=== PATIENT | male | born 1985 | race Caucasian/White ===

== ENCOUNTER 2025-03-07 14:09 | Inpatient (IN) | payer OTHER, SELFPAY ==
--- NOTE | ~2025-03-07 | CT_ITS ---
EXAMINATION: CT right hand with contrast: DATE: 03/07/2025 INDICATION: 39-year-old with suspected abscess of right thumb. No mention of trauma. No further clinical history available. TECHNIQUE: CT scan of right hand including the thumb with 100 cc IV contrast, reviewed in multiple projections. COMPARISON: None previous available FINDINGS: Severe lytic process involving distal half of the proximal phalanx of the right thumb. The articular surface of the proximal phalanx at the interphalangeal joint is completely destroyed. Diffuse soft tissue swelling of the thumb with low density collection in the soft tissue measuring 2.5 x 1.5 cm in size suggestive of possible abscess. The distal phalanx is relatively normal. IMPRESSION: 1. Significant obstructive process involving distal half of the proximal phalanx of the thumb. This is suggestive of osteomyelitis of the proximal phalanx. Less likely differential diagnosis would include neoplasm. 2. Diffuse soft tissue inflammation of the thumb cellulitis. Additional focal low density collection near the interphalangeal joint, 2.5 x 1.5 cm in size suggestive of abscess. Reviewed, dictated and finalized at location T. BOX CHANGER IMPRESSION: 1. Significant obstructive process involving distal half of the proximal phalan x of the thumb. This is suggestive of osteomyelitis of the proximal phalanx. Le ss likely differential diagnosis would include neoplasm. 2. Diffuse soft tissue inflammation of the thumb cellulitis. Additional focal low density collection near the interphalangeal joint, 2.5 x 1 .5 cm in size suggestive of abscess.
[2025-03-07 14:17] VITALS: BP 170/113; PULSE 102; RESP 20; TEMP 36.5; O2SAT 98
--- NOTE | 2025-03-07 16:35 | ED.UPPEXIN ---
HPI - Extremity Injury (Upper) General Chief Complaint: Extremity Injury, Upper <RACHEL Hernandez Last Filed: 03/07/25 19:28> Stated Complaint: Fit for confinement-right thumb swelling <RACHEL Hernandez Last Filed: 03/07/25 19:28> Time Seen by Provider: 03/07/25 15:39 <RACHEL Hernandez Last Filed: 03/07/25 19:28> Source: patient <RACHEL Hernandez Last Filed: 03/07/25 19:28> Mode of arrival: ambulatory <RACHEL Hernandez Last Filed: 03/07/25 19:28> Limitations: no limitations <RACHEL Hernandez Last Filed: 03/07/25 19:28> History of Present Illness HPI narrative: Patient is a 49 y/o male who presents to the ED with c/o infection to R thumb. Patient reports he was cleaning his hatchet with a bleach water solution around 2 months ago and sustained a cut across the dorsal aspect of his R thumb. States since then he has had redness, swelling, drainage from the right thumb. Has been on 2 different courses of antibiotics, most recently Bactrim. He did report some improvement with the Bactrim, but states over the past couple days the thumb has become infected again, larger in size with area of abscess, redness/warmth, pain. Reports subjective fevers. <RACHEL Hernandez Last Filed: 03/07/25 19:28> Related Data Home Medications: Home Medications ?Medication ?Instructions ?Recorded ?Confirmed ?Last Taken ?Type gabapentin 600 mg tablet 600 mg PO TID 03/07/25 03/07/25 03/07/25 History meloxicam 15 mg tablet 15 mg PO DAILY 03/07/25 03/07/25 03/05/25 History <RACHEL Hernandez Last Filed: 03/07/25 19:28> Allergies/Adverse Reactions: Allergies Allergy/AdvReac Type Severity Reaction Status Date / Time lisinopril Allergy Severe Swelling Verified 03/07/25 22:06 of Lip/Tongue/Throat <Mary Cordova PA-C - Last Filed: 03/07/25 19:28> Review of Systems Review of Systems: All systems reviewed & are unremarkable except as noted in HPI. <Mary Cordova PA-C - Last Filed: 03/07/25 19:28> All systems reviewed & are unremarkable except as noted in HPI and below <Mary Cordova PA-C - Last Filed: 03/07/25 19:28> PMFSH Past Medical History Medical History: Medical History (Updated 03/08/25 @ 14:38 by Chuyita Schmitz MD) Back pain <Mary Cordova PA-C - Last Filed: 03/07/25 19:28> Family History Family History: Family History (Updated 03/07/25 @ 22:50 by Cristhian Gibbs RN) Father Heart failure <Mary Cordova PA-C - Last Filed: 03/07/25 19:28> Social History Social History: Social History Smoking status: Current some day smoker Tobacco type: cigarettes Alcohol intake: former Substance use: current Substance use type: marijuana Last use: Daily Lack of Transportation: YES Lack of Food: Never True Current Housing: I Have Housing Concerned About Future Housing: No Difficulty Paying Gas/Electric Bills: No Difficulty Paying for Meds: No Currently Unemployed: YES Education: High School Diploma/GED Difficulty w/ Childcare or Family Care: No Spiritual care concerns: No <Mary Cordova PA-C - Last Filed: 03/07/25 19:28> Exam Narrative: GENERAL: Mildly unkempt appearing, well-nourished, non-toxic, in no acute distress. HEAD: Normocephalic, atraumatic. RESPIRATORY: Airway patent, respirations nonlabored. CARDIOVASCULAR: Regular rate and rhythm without murmurs, rubs, or gallops. Radial pulses strong and easily palpable MUSCULOSKELETAL: Moves all extremities. Marked swelling and erythema to right thumb, localized around IP joint. Area of focal fluctuance /abscess formation to medial IP joint on the dorsal surface of thumb with purple discoloration/bogginess, mild tenderness to palpation. Redness/warmth/swelling extending to mcp region. Sensation intact. SKIN: Warm, dry, normal color. NEURO: A&O X3. Speech clear. No ataxic movements. PSYCHIATRIC: Appropriate mood and affect. Normal interaction. <Mary Cordova PA-C - Last Filed: 03/07/25 19:28> Course MANAGER CHEMICAL/PA Physician Supervision This visit was performed by both a physician and an Advanced Junior Web Developer. I performed all aspects of the Medical Decision Making as documented. <Osiel Guzman MD - Last Filed: 03/15/25 19:16> Vital Signs Vital signs: Vital Signs Temperature 97.7 F 03/07/25 14:17 Pulse Rate 102 H 03/07/25 14:17 Respiratory Rate 20 03/07/25 14:17 Blood Pressure 170/113 H 03/07/25 14:17 Pulse Oximetry 98 03/07/25 14:17 Oxygen Delivery Room Air 03/07/25 14:17 Temperature 96.5 F L 03/11/25 04:35 Pulse Rate 74 03/11/25 04:35 Respiratory Rate 20 03/11/25 04:35 Blood Pressure 145/87 H 03/11/25 04:35 Pulse Oximetry 99 03/11/25 04:35 Oxygen Delivery Room Air 03/11/25 08:06 <Mary Cordova PA-C - Last Filed: 03/07/25 19:28> Vital Signs Temperature 97.7 F 03/07/25 14:17 Pulse Rate 102 H 03/07/25 14:17 Respiratory Rate 20 03/07/25 14:17 Blood Pressure 170/113 H 03/07/25 14:17 Pulse Oximetry 98 03/07/25 14:17 Oxygen Delivery Room Air 03/07/25 14:17 Temperature 96.5 F L 03/11/25 04:35 Pulse Rate 74 03/11/25 04:35 Respiratory Rate 20 03/11/25 04:35 Blood Pressure 145/87 H 03/11/25 04:35 Pulse Oximetry 99 03/11/25 04:35 Oxygen Delivery Room Air 03/11/25 08:06 <Osiel Guzman MD - Last Filed: 03/15/25 19:16> Procedures Abscess I/D hand: Date of Incision: 03/07/25 <Mary Cordova PA-C - Last Filed: 03/07/25 19:28> Time of Incision: 18:30 <RACHEL Hernandez Last Filed: 03/07/25 19:28> Side (if applicable): right (thumb) <Mary Cordova PA-C - Last Filed: 03/07/25 19:28> Sedation/analgesia: none <RACHEL Hernandez Last Filed: 03/07/25 19:28> Local Anesthetic: lidocaine 1% <RACHEL Hernandez Last Filed: 03/07/25 19:28> Amount of anesthesia used (mL): 3 <RACHEL Hernandez Last Filed: 03/07/25 19:28> Technique: incised with #11 blade and probed loculations <RACHEL Hernandez Last Filed: 03/07/25 19:28> Amount of fluid expressed (mL): 3 <RACHEL Hernandez Last Filed: 03/07/25 19:28> Irrigation: Yes <RACHEL Hernandez Last Filed: 03/07/25 19:28> Packing used?: none <RACHEL Hernandez Last Filed: 03/07/25 19:28> I&D Results: Pus, Blood and Other (serous fluid) <RACHEL Hernandez Last Filed: 03/07/25 19:28> Complications: other (none) <RACHEL Hernandez Last Filed: 03/07/25 19:28> MDM MDM Narrative Medical decision making narrative: Exam consistent with severe cellulitis/abscess of R thumb. Vital signs are stable upon arrival. Patient in no acute silvia distress. CBC with white blood cell count of 9.9. Lactic acid within normal range at 0.8. CRP elevated 4.2. Blood cultures obtained. Vanc started CT scan of right hand: IMPRESSION: 1. Significant obstructive process involving distal half of the proximal phalanx of the thumb. This is suggestive of osteomyelitis of the proximal phalanx. Less likely differential diagnosis would include neoplasm. 2. Diffuse soft tissue inflammation of the thumb cellulitis. Additional focal low density collection near the interphalangeal joint, 2.5 x 1.5 cm in size suggestive of abscess. Discussed case with Dr. Haque, hand/plastic surgery, agrees with plan for admission, will consult, recommended attempting I&D, soak with betadine/peroxide/saline, wrap hand, warm compresses, elevate hand, recommended to add Zosyn for g negative coverage. Admit to hospitalist service. Discussed case with Tamika COPELAND hospitalist, accepted patient for admission. Patient and family in agreement with plan <Mary Cordova PA-C - Last Filed: 03/07/25 19:28> Differential Diagnosis Differential Diagnosis: Foreign body, cellulitis, abscess, osteomyelitis, thumb fracture <RACHEL Hernandez Last Filed: 03/07/25 19:28> Medical Records I have reviewed the following patient records and this information was taken into consideration when formulating the assessment and plan.: previous labs, previous ER visits, previous hospitalizations and previous clinic visits <Mary Cordova PA-C - Last Filed: 03/07/25 19:28> Lab Data MDM Lab Attestation statement: I personally reviewed the patient's lab results. <RACHEL Hernandez Last Filed: 03/07/25 19:28> Result diagrams: 03/11/25 04:49 03/10/25 05:34 <RACHEL Hernandez Last Filed: 03/07/25 19:28> Labs: Lab Results 03/07/25 03/07/25 03/07/25 Range/Units 16:49 16:50 17:01 WBC 9.9 (4.5-10.0) K/mm3 RBC 4.49 L (4.6-6.20) M/mm3 Hgb 12.9 L (14.0-18.0) g/dL Hct 39.4 L (42.0-52.0) % MCV 87.8 (80-100) fl MCH 28.7 (26-34) pg MCHC 32.7 (32-36) g/dl RDW 14.1 (11.5-14.5) % Plt Count 211 (150-375) k/mm3 MPV 9.7 (7.4-10.4) fl Immature Gran % (Auto) 0.5 (0-0.5) % Neut % (Auto) 74.7 H (45.5-73.1) % Lymph % (Auto) 14.0 L (18.3-44.2) % [place] % (Auto) 9.5 H (2.6-8.5) % Eos % (Auto) 1.2 (0-4.4) % Baso % (Auto) 0.1 L (0.2-1.2) % Lymph # (Auto) 1.38 (0.9-3.2) K/mm3 [place] # (Auto) 0.9 H (0.1-0.6) K/mm3 Eos # (Auto) 0.1 (0-0.3) K/mm3 Baso # (Auto) 0.0 (0.0-0.1) K/mm3 Abs Immat Gran (auto) 0.05 H (0.00-0.031) K/mm3 Absolute Neuts (auto) 7.4 H (1.3-6.7) K/mm3 Absolute Nucleated RBC 0.000 (0.0-0.012) K/mm3 Nucleated RBC % 0.0 (0.0-0.2) % ESR 19 (0-20) mm/hr Sodium 138 (137-145) mmol/L Potassium 3.7 (3.4-5.0) mmol/L Chloride 107 (98-107) mmol/L Carbon Dioxide 25 (22-30) mmol/L Anion Gap 6 (4-12) mmol/L BUN 18 (9-20) mg/dL Creatinine 0.75 0.80 (0.7-1.3) mg/dL Estim Creat Clear Calc 136 128 ml/min Estimated GFR > 60 > 60 (59 - ) Glucose 93 (65-110) mg/dL Lactic Acid 0.8 (0.7-2.0) mmol/L Calcium 9.1 (8.4-10.2) mg/dL Total Bilirubin 0.5 (0.2-1.3) mg/dL AST 35 (17-59) U/L ALT 34 (6-50) U/L Alkaline Phosphatase 100 (38-126) U/L C-Reactive Protein 4.2 H (<1.0) mg/dL Total Protein 7.7 (6.3-8.2) g/dL Albumin 4.4 (3.5-5.1) g/dL Vancomycin Trough (10.0-20.0) ug/mL 03/08/25 03/09/25 Range/Units 05:11 05:18 WBC 6.3 7.0 (4.5-10.0) K/mm3 RBC 4.18 L 4.36 L (4.6-6.20) M/mm3 Hgb 11.9 L 12.5 L (14.0-18.0) g/dL Hct 37.3 L 39.4 L (42.0-52.0) % MCV 89.2 90.4 (80-100) fl MCH 28.5 28.7 (26-34) pg MCHC 31.9 L 31.7 L (32-36) g/dl RDW 14.1 14.2 (11.5-14.5) % Plt Count 184 207 (150-375) k/mm3 MPV 10.0 10.4 (7.4-10.4) fl Immature Gran % (Auto) 0.3 0.3 (0-0.5) % Neut % (Auto) 56.9 63.9 (45.5-73.1) % Lymph % (Auto) 25.1 20.1 (18.3-44.2) % [place] % (Auto) 12.5 H 10.7 H (2.6-8.5) % Eos % (Auto) 5.0 H 4.7 H (0-4.4) % Baso % (Auto) 0.2 0.3 (0.2-1.2) % Lymph # (Auto) 1.59 1.41 (0.9-3.2) K/mm3 [place] # (Auto) 0.8 H 0.8 H (0.1-0.6) K/mm3 Eos # (Auto) 0.3 0.3 (0-0.3) K/mm3 Baso # (Auto) 0.0 0.0 (0.0-0.1) K/mm3 Abs Immat Gran (auto) 0.02 0.02 (0.00-0.031) K/mm3 Absolute Neuts (auto) 3.6 4.5 (1.3-6.7) K/mm3 Absolute Nucleated RBC 0.000 0.000 (0.0-0.012) K/mm3 Nucleated RBC % 0.0 0.0 (0.0-0.2) % ESR (0-20) mm/hr Sodium 137 (137-145) mmol/L Potassium 3.5 (3.4-5.0) mmol/L Chloride 108 H (98-107) mmol/L Carbon Dioxide 27 (22-30) mmol/L Anion Gap 2 L (4-12) mmol/L BUN 14 (9-20) mg/dL Creatinine 0.82 0.86 (0.7-1.3) mg/dL Estim Creat Clear Calc 124 118 ml/min Estimated GFR > 60 > 60 (59 - ) Glucose 92 (65-110) mg/dL Lactic Acid (0.7-2.0) mmol/L Calcium 8.6 (8.4-10.2) mg/dL Total Bilirubin (0.2-1.3) mg/dL AST (17-59) U/L ALT (6-50) U/L Alkaline Phosphatase (38-126) U/L C-Reactive Protein (<1.0) mg/dL Total Protein (6.3-8.2) g/dL Albumin (3.5-5.1) g/dL Vancomycin Trough 8.8 L (10.0-20.0) ug/mL <Mary Cordova PA-C - Last Filed: 03/07/25 19:28> Lab Results 03/07/25 03/07/25 03/07/25 Range/Units 16:49 16:50 17:01 WBC 9.9 (4.5-10.0) K/mm3 RBC 4.49 L (4.6-6.20) M/mm3 Hgb 12.9 L (14.0-18.0) g/dL Hct 39.4 L (42.0-52.0) % MCV 87.8 (80-100) fl MCH 28.7 (26-34) pg MCHC 32.7 (32-36) g/dl RDW 14.1 (11.5-14.5) % Plt Count 211 (150-375) k/mm3 MPV 9.7 (7.4-10.4) fl Immature Gran % (Auto) 0.5 (0-0.5) % Neut % (Auto) 74.7 H (45.5-73.1) % Lymph % (Auto) 14.0 L (18.3-44.2) % [place] % (Auto) 9.5 H (2.6-8.5) % Eos % (Auto) 1.2 (0-4.4) % Baso % (Auto) 0.1 L (0.2-1.2) % Lymph # (Auto) 1.38 (0.9-3.2) K/mm3 [place] # (Auto) 0.9 H (0.1-0.6) K/mm3 Eos # (Auto) 0.1 (0-0.3) K/mm3 Baso # (Auto) 0.0 (0.0-0.1) K/mm3 Abs Immat Gran (auto) 0.05 H (0.00-0.031) K/mm3 Absolute Neuts (auto) 7.4 H (1.3-6.7) K/mm3 Absolute Nucleated RBC 0.000 (0.0-0.012) K/mm3 Nucleated RBC % 0.0 (0.0-0.2) % ESR 19 (0-20) mm/hr Sodium 138 (137-145) mmol/L Potassium 3.7 (3.4-5.0) mmol/L Chloride 107 (98-107) mmol/L Carbon Dioxide 25 (22-30) mmol/L Anion Gap 6 (4-12) mmol/L BUN 18 (9-20) mg/dL Creatinine 0.75 0.80 (0.7-1.3) mg/dL Estim Creat Clear Calc 136 128 ml/min Estimated GFR > 60 > 60 (59 - ) Glucose 93 (65-110) mg/dL Lactic Acid 0.8 (0.7-2.0) mmol/L Calcium 9.1 (8.4-10.2) mg/dL Total Bilirubin 0.5 (0.2-1.3) mg/dL AST 35 (17-59) U/L ALT 34 (6-50) U/L Alkaline Phosphatase 100 (38-126) U/L C-Reactive Protein 4.2 H (<1.0) mg/dL Total Protein 7.7 (6.3-8.2) g/dL Albumin 4.4 (3.5-5.1) g/dL Vancomycin Trough (10.0-20.0) ug/mL 03/08/25 03/09/25 Range/Units 05:11 05:18 WBC 6.3 7.0 (4.5-10.0) K/mm3 RBC 4.18 L 4.36 L (4.6-6.20) M/mm3 Hgb 11.9 L 12.5 L (14.0-18.0) g/dL Hct 37.3 L 39.4 L (42.0-52.0) % MCV 89.2 90.4 (80-100) fl MCH 28.5 28.7 (26-34) pg MCHC 31.9 L 31.7 L (32-36) g/dl RDW 14.1 14.2 (11.5-14.5) % Plt Count 184 207 (150-375) k/mm3 MPV 10.0 10.4 (7.4-10.4) fl Immature Gran % (Auto) 0.3 0.3 (0-0.5) % Neut % (Auto) 56.9 63.9 (45.5-73.1) % Lymph % (Auto) 25.1 20.1 (18.3-44.2) % [place] % (Auto) 12.5 H 10.7 H (2.6-8.5) % Eos % (Auto) 5.0 H 4.7 H (0-4.4) % Baso % (Auto) 0.2 0.3 (0.2-1.2) % Lymph # (Auto) 1.59 1.41 (0.9-3.2) K/mm3 [place] # (Auto) 0.8 H 0.8 H (0.1-0.6) K/mm3 Eos # (Auto) 0.3 0.3 (0-0.3) K/mm3 Baso # (Auto) 0.0 0.0 (0.0-0.1) K/mm3 Abs Immat Gran (auto) 0.02 0.02 (0.00-0.031) K/mm3 Absolute Neuts (auto) 3.6 4.5 (1.3-6.7) K/mm3 Absolute Nucleated RBC 0.000 0.000 (0.0-0.012) K/mm3 Nucleated RBC % 0.0 0.0 (0.0-0.2) % ESR (0-20) mm/hr Sodium 137 (137-145) mmol/L Potassium 3.5 (3.4-5.0) mmol/L Chloride 108 H (98-107) mmol/L Carbon Dioxide 27 (22-30) mmol/L Anion Gap 2 L (4-12) mmol/L BUN 14 (9-20) mg/dL Creatinine 0.82 0.86 (0.7-1.3) mg/dL Estim Creat Clear Calc 124 118 ml/min Estimated GFR > 60 > 60 (59 - ) Glucose 92 (65-110) mg/dL Lactic Acid (0.7-2.0) mmol/L Calcium 8.6 (8.4-10.2) mg/dL Total Bilirubin (0.2-1.3) mg/dL AST (17-59) U/L ALT (6-50) U/L Alkaline Phosphatase (38-126) U/L C-Reactive Protein (<1.0) mg/dL Total Protein (6.3-8.2) g/dL Albumin (3.5-5.1) g/dL Vancomycin Trough 8.8 L (10.0-20.0) ug/mL <Osiel Guzman MD - Last Filed: 03/15/25 19:16> Imaging Data Attestation: I personally reviewed and interpreted this imaging study as follows: <Mary Cordova PA-C - Last Filed: 03/07/25 19:28> Radiologist's impression: ITS Impressions Hand CT 03/07/25 17:24 IMPRESSION: 1. Significant obstructive process involving distal half of the proximal phalanx of the thumb. This is suggestive of osteomyelitis of the proximal phalanx. Less likely differential diagnosis would include neoplasm. 2. Diffuse soft tissue inflammation of the thumb cellulitis. Additional focal low density collection near the interphalangeal joint, 2.5 x 1.5 cm in size suggestive of abscess. <Mary Cordova PA-C - Last Filed: 03/07/25 19:28> ITS Impressions Hand CT 03/07/25 17:24 IMPRESSION: 1. Significant obstructive process involving distal half of the proximal phalanx of the thumb. This is suggestive of osteomyelitis of the proximal phalanx. Less likely differential diagnosis would include neoplasm. 2. Diffuse soft tissue inflammation of the thumb cellulitis. Additional focal low density collection near the interphalangeal joint, 2.5 x 1.5 cm in size suggestive of abscess. <Osiel Guzman MD - Last Filed: 03/15/25 19:16> Discharge Plan Discharge Clinical Impression: Abscess of right thumb, Cellulitis of right thumb, Osteomyelitis of finger of right hand <Mary Cordova PA-C - Last Filed: 03/07/25 19:28> Patient Disposition: Still a Patient <Mary Cordova PA-C - Last Filed: 03/07/25 19:28> Condition: Stable <RACHEL Hernandez Last Filed: 03/07/25 19:28>
[2025-03-07 16:43] VITALS: BP 128/81; PULSE 93; RESP 19; O2SAT 100
[2025-03-07 16:58] LABS: Hematocrit 39.4 % (42.0-52.0); Hemoglobin 12.9 g/dL (14.0-18.0); Immature Granulocyte Percent A 0.5 % (0-0.5); Lymphocytes Absolute Auto 1.38 K/mm3 (0.9-3.2); Mean Corpuscular HGB Conc 32.7 g/dl (32-36); Mean Corpuscular Hemoglobin 28.7 pg (26-34); Mean Corpuscular Volume 87.8 fl (80-100); Nucleated Red Blood Cells Absolute Auto 0.000 K/mm3 (0.0-0.012); Nucleated Red Blood Cells Perc 0.0 % (0.0-0.2); Platelet Count Result 211 k/mm3 (150-375); Red Blood Count 4.49 M/mm3 (4.6-6.20); White Blood Count 9.9 K/mm3 (4.5-10.0)
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
--- OUTSIDE RECORDS SUMMARY | 2025-03-07 17:02 | XMS_ITS | Encounter Summary ---
Author Organization [facility] Healthcare Address [address] [place] [address] Care Team Providers Care Display Specialist Name Role Phone No, Physician Primary Care Provider [phone] Encounter Details Date Type Department Care Team (Late st Contact Info) Description 04/08/2023 Telephone Specialty Care Clinic [address] [facility] 4th Floor [address] [place] [address] Nicole, Physician Social History Tobacco Use Types Packs/Day Years Used Date Smoking Tobacco: Unknown Personal Safety Answer Date Recorded Have you ever been in or are you currently in a harmful physical or emotional relationship or is someone making you feel afraid or unsafe? Denies 03/31/2023 Sex and Gender Information Value Date Recorded Sex Assigned at Not on file Legal Sex Male 1:56 PM CHILDCARE AIDE Gender Identity Not on file Sexual Orientation Not on file documented as of this encounter Plan of Treatment Not on file documented as of this encounter Visit Diagnoses Not on filedocumented in this encounter Additional Health Concerns Infection Onset Date Last Indicated Resolved Time MRSA 03/31/2023 03/31/2023 09/27/2023 3:05 AM CDT documented as of this encounter Care Teams Display Specialist Relationship Specialty Start Date End Date Nicole Physician PCP - General 03/24/23 documented as of this encounter
--- OUTSIDE RECORDS SUMMARY | 2025-03-07 17:03 | XMS_ITS | Clinical Summary ---
Author Organization [facility] Address [address] [place] [address] Care Team Providers Care Diesel Engine Specialist Name Role Phone No, Physician Primary Care Provider [phone] Allergies Active Allergy Reactions Criticality Noted Date Comments Lisinopril Angioedema High 03/24/2023 Medications acetaminophen (TYLENOL) 500 mg tablet Take 1-2 tablets (500-1,000 mg total) by mouth 2 (two) times a day Active gabapentin (NEURONTIN) 300 mg capsule TAKE 1 CAPSULE BY MOUTH THREE TIMES A DAY 90 capsule 3 09/22/2023 Active gabapentin (NEURONTIN) 300 mg capsule Take 1 capsule (300 mg total) by mouth 3 (three) times a day 90 capsule 1 09/19/2023 Active Active Problems Problem Noted Date Diagnosed Date Spinal stenosis, lumbar luly on, with neurogenic claudication 05/16/2023 Insect bite of left hand, initial encounter 06/2023 Cellulitis and abscess of hand 03/31/2023 Assessment & Plan (04/02/2023 9:47 AM SHOWER MAID): 2/2 insect bite. Started having symptoms after a suspected sided bite on left pinky finger approximately 4 days ago which progressed to the point where he has hand swelling and unbearable pain with [id number] Tylenol and ibuprofen at home. Labs notable for leukocytosis with white count of 14.2 with neutrophilia, elevated ESR of 16, CRP of 128. X-ray however shows a very subtle cortical irregularity involving mid shaft of the left 5th metacarpal which is favored to represent a nutrient foramen over an osseous erosion. - Evaluated by plastics in the ED and performed I&D with purulence noted. S/p re-eval 04/01, cont abx and non-op management. PRS eval again 04/02 rec additional day of IV abx however pt refusing to stay - Wound cultures in process with MRSA and group b strep - S/p splinting by OT - Cont wound care per PRS: TID soaks. 03/29 in iodoform, adaptic, 4x4, and volar resting splint - Started vancomycin to cover for MRSA in view of his previous history, [place] Surgical History Surgery Date Site/Laterality Comments LEG SURGERY Left broken leg POSTERIOR LAMINECTOMY / DECOMPRESSION LUMBAR SPINE 03/28/2018 - 03/27/2019 L4-5 Social History Tobacco Use Types Packs/Day Years Used Date Smoking Tobacco: Every Day Cigarettes Tobacco Cessation:Ready to Q uit: Not Asked; Counseling Given: Not Answered Hunger Vital Sign Answer Date Recorded Within the past 12 months, y ou worried that your food would run out before you got the money to buy more. Never true 05/16/19 24 Within the past 12 months, t he food you bought just didn't last and you didn't have money to get more. Never true 05/16/2023 Personal Safety Answer Date Recorded Have you ever been in or are you currently in a harmful physical or emotional relationship or is someone making you feel afraid or unsafe? Denies 03/31/2023 Sex and Gender Information Value Date Recorded Sex Assigned at Not on file Legal Sex Male 1:56 PM SHOWER MAID Gender Identity Not on file Sexual Orientation Not on file Last Filed Vital Signs Vital Sign Reading Time Taken Comments Blood Pressure 149/93 04/02/2023 8:15 AM SHOWER MAID Pulse 69 04/02/2023 8:15 AM SHOWER MAID Temperature 36.5 C (97.7 F) 04/02/2023 8:15 AM SHOWER MAID Respiratory Rate 16 04/02/2023 8:15 AM SHOWER MAID Oxygen Saturation 94% 04/02/2023 8:15 AM SHOWER MAID Inhaled Oxygen Concentration - - Weight 82.1 kg (181 lb) 09/16/2023 9:51 AM CDT Height 193 cm (6' 4) 09/16/2023 9:51 AM CDT Body Mass Index 22.03 09/16/2023 9:51 AM CDT Plan of Treatment Health Maintenance Due Date Last Done Comments Depression Screening 1983 Hepatitis C Screening 1983 DTaP/Tdap/Td Vaccine (1 - Tdap) 1994 Varicella Vaccines (1 of 2 - 13+ 2-dose series) 1996 Hepatitis B Screening 2001 Regular Well Visit/Exam 18-64 2001 Pneumococcal vaccine <65 (1 of 2 - PCV) 2002 HPV Vaccines (1 - 3-dose SCDM series) 2010 Influenza Vaccine (#1) 2024 Insurance [facility] Advance Directives For more information, please contact: [phone] * Full Code (Latest Code Status on File) Date Activated Date Inactivated Comments 03/31/2023 3:00 PM 04/02/2023 2:55 PM Care Teams Diesel Engine Specialist Relationship Specialty Start Date End Date No, Physician PCP - General 03/24/23
[2025-03-07 17:13] LABS: Alanine Aminotransferase 34 U/L (6-50); Albumin Level 4.4 g/dL (3.5-5.1); Alkaline Phosphatase 100 U/L (38-126); Anion Gap 6 mmol/L (4-12); Aspartate Amino Transferase 35 U/L (17-59); Bilirubin,Total 0.5 mg/dL (0.2-1.3); Blood Urea Nitrogen 18 mg/dL (9-20); CRP 4.2 mg/dL (<1.0); Calcium 9.1 mg/dL (8.4-10.2); Carbon Dioxide 25 mmol/L (22-30); Chloride 107 mmol/L (98-107); Estimated CRCL calculation 136 ml/min; Estimated Glomerular Filt Rate > 60; Glucose 93 mg/dL (65-110); Potassium 3.7 mmol/L (3.4-5.0); Sodium 138 mmol/L (137-145); Total Protein 7.7 g/dL (6.3-8.2)
--- NOTE | 2025-03-07 17:43 | PC.NURSE ---
standard regular diet dinner tray ordered
[2025-03-07] MEDS: VANCOMYCIN 1,500 MG/NS 500 ML 1,500 MG/500 ML BAG 250 MG IVPB (17:45)
[2025-03-07 18:56] VITALS: BP 149/108; PULSE 91; RESP 20; O2SAT 98
--- NOTE | 2025-03-07 18:57 | PC.NURSE ---
per pharmacy, the Zosyn and vancomycin can be hung together
[2025-03-07 19:01] VITALS: BP 165/102; PULSE 90; RESP 16; O2SAT 99
[2025-03-07] MEDS: PIPERACILLIN/TAZOBACTAM SOD 3.375 GM in SODIUM CHLORIDE 0.9% IV 50 ML 100 ML IVPB (19:03)
[2025-03-07] MEDS: HYDROGEN PEROXIDE 3% SOLN(*SP) 473 ML BOTTLE (19:03)
[2025-03-07 19:14] LABS: Estimated CRCL calculation 128 ml/min; Estimated Glomerular Filt Rate > 60
--- OUTSIDE RECORDS SUMMARY | 2025-03-07 19:14 | XMS_ITS | Encounter Summary ---
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
--- OUTSIDE RECORDS SUMMARY | 2025-03-07 19:15 | XMS_ITS | Clinical Summary ---
Author Organization [facility] Address [facility] [place] [address] Care Team Providers Care Wire Border Assembler Name Role Phone None, Provider MD Primary [...] from your doctor or pharmacy? Never 05/24/2024 [facility] Utilities Answer Date Recorded In the past 12 months has e [employer], gas, oil, or water company threatened to [...] often do you attend chur ch or zoroastrianism services? Never 05/24/2024 Do you belong to any clubs o r organizations such as presybeterian groups, unions, fraternal or athletic groups, or [...] medical care, and heating? Somewhat hard 05/24/2024 [facility] Occupational Stress Questionnaire [...] any time in the past 12 m [facility], were you homeless or living in a correction (including now)? No 05/24/2024 Sex and Gender Information Value Date Recorded Sex Assigned at Male 05/23/2024 10:46 PM CONTRACTS ANALYST Legal Sex Male 7:27 PM CDT Gender Identity Not on file Sexual Orientation Not on file Last Filed Vital Signs Vital Sign Reading Time Taken Comments Blood Pressure 149/99 05/26/2024 7:10 AM CONTRACTS ANALYST Pulse 81 05/26/2024 7:10 AM CONTRACTS ANALYST Temperature 36.6 C (97.8 F) 05/26/2024 7:10 AM CONTRACTS ANALYST Respiratory Rate 18 05/26/2024 7:10 AM CONTRACTS ANALYST Oxygen Saturation 99% 05/26/2024 7:10 AM CONTRACTS ANALYST Inhaled Oxygen Concentration - - Weight 84.3 kg (185 lb 12.8 oz) 05/24/2024 3:00 AM CONTRACTS ANALYST Height 193 cm (6' 4) 05/24/2024 3:00 AM CONTRACTS ANALYST Body Mass Index 22.62 05/24/2024 3:00 AM CONTRACTS ANALYST Plan of Treatment Health Maintenance Due Date [...] Recommended Domains Addressed Status Status Reason/Outcome Date/Time [facility] Financial Assistance Financial Resource Strain Recommended 10/14/2024 9:52 PM CDT [facility] Children Home and Aid Financial Assistance Financial Resource Strain Recommended 10/14/2024 9:[address] [facility] Food Insecurity Services Food Insecurity Recommended 10/14/2024 9:52 PM CDT [facility] Food Insecurity Services Food Insecurity Recommended 10/14/2024 9:52 PM CDT [employer] [place] [place] Food Insecurity Services Food Insecurity Recommended 10/14/2024 9:52 PM CDT [facility] Community Underground Miner- Gissell Preez Financial Assistance Financial Resource Strain Recommended 10/14/2024 9:52 PM CDT [facility] Community Underground Miner- Divya Coronel Financial Assistance, Food Insecurity Services Financial Resource Strain, Food Insecurity Recommended 10/14/2024 9:52 PM CDT [facility] WIC Financial Assistance, Food Insecurity Services, Supplemental Nutrition Programs Financial Resource Strain, Food Insecurity Recommended 10/14/2024 9:52 PM CDT from Last 12 Months Additional Health Concerns Infection Onset Date Last Indicated MRSA Comment:05/25/24 right foot (ANAYA) 05/25/2024 05/25/[address] [place] [address] Care Teams Wire Border Assembler Relationship Specialty Start Date End Date None, Provider, PCP - General UNKNOWN PHYSICIAN SPECIALTY 05/23/24
--- OUTSIDE RECORDS SUMMARY | 2025-03-07 19:15 | XMS_ITS | Clinical Summary ---
Author Organization [facility] Address [address] [place] [address] Care Team Providers Care Acute Care Surgeon Name Role Phone No, Physician Primary Care Provider [phone] Allergies Active Allergy Reactions Criticality Noted Date [...] 03/31/2023 Assessment & Plan (04/02/2023 9:47 AM CLERK CARRIER): 2/2 insect bite. Started having symptoms after a suspected sided bite on left pinky finger approximately 4 days ago which progressed to the point where he has hand swelling and unbearable pain with [id number] Tylenol and ibuprofen at home. Labs notable [...] his previous history, [place] Surgical History Surgery Date Site/Laterality Comments LEG [...] on file Legal Sex Male 1:56 PM CLERK CARRIER Gender Identity Not on file Sexual Orientation Not on file Last Filed Vital Signs Vital Sign Reading Time Taken Comments Blood Pressure 149/93 04/02/2023 8:15 AM CLERK CARRIER Pulse 69 04/02/2023 8:15 AM CLERK CARRIER Temperature 36.5 C (97.7 F) 04/02/2023 8:15 AM CLERK CARRIER Respiratory Rate 16 04/02/2023 8:15 AM CLERK CARRIER Oxygen Saturation 94% 04/02/2023 8:15 AM CLERK CARRIER Inhaled Oxygen Concentration - - Weight 82.1 [...] series) 2010 Influenza Vaccine (#1) 2024 Insurance [facility] Advance Directives For more information, please contact: [phone] * Full Code (Latest Code Status on File) Date Activated Date Inactivated Comments 03/31/2023 3:00 PM 04/02/2023 2:55 PM Care Teams Acute Care Surgeon Relationship Specialty Start Date End Date No, Physician PCP - General 03/24/23
--- NOTE | 2025-03-07 20:29 | PM.IMHP2 ---
H&P: HPI History of Present Illness Date/Time: 03/07/25 1800 Chief Complaint: Right thumb injury Narrative: 39 year old male with a past medical history of chronic back pain presents to the ED on 03/07/[address] for fit for confinement assessment after being detained during a traffic stop. Patient has but noticeably infected right thumb. He reports he was cleaning an old patch it about 2 months ago and sustained a cut on the dorsal aspect of his right thumb. He states it is been red and swollen with drainage at times. He reports that was ?almost healed? at one point but became inflamed again. Over the past 2 months he has been on 2 different courses of antibiotics most recently being Bactrim. He reported some improvement with the Bactrim but over the past couple days the thumb has rapidly become more infected again, larger in size, and painful. Patient reports intermittent fevers. Abscess was drained in the ED with drainage of pus and blood. Initial vital signs 170/113, HR 102, respirations 20, afebrile and 98% on room air No leukocytosis on hematology. CRP is 4.2. Right Hand CT reads significant obstructive process involving distal half of the proximal phalanx of the thumb suggestive of osteomyelitis. Diffuse soft tissue inflammation. Additional focal low-density collection near the interphalangeal joint suggestive of abscess. Review of Systems Review of Systems: All systems reviewed & are unremarkable except as noted in HPI and below PMFSH Past Medical History Medical History (Updated 03/08/25 @ 02:04 by Tamika Garrett APRN) Back pain Family History Family History (Updated 03/07/25 @ 22:50 by Cristhian Gibbs RN) Father Heart failure Social History Social History Alcohol intake: former Substance use: current Substance use type: marijuana Last use: Daily Lack of Transportation: YES Lack of Food: Never True Current Housing: I Have Housing Concerned About Future Housing: No Difficulty Paying Gas/Electric Bills: No Difficulty Paying for Meds: No Currently Unemployed: YES Education: High School Diploma/GED Difficulty w/ Childcare or Family Care: No Spiritual care concerns: No Meds Home Medications and Allergies Home Medications ?Medication ?Instructions ?Recorded ?Confirmed ?Type gabapentin 600 mg tablet 600 mg PO TID 03/07/25 03/07/25 History meloxicam 15 mg tablet 15 mg PO DAILY 03/07/25 03/07/25 History Allergies Allergy/AdvReac Type Severity Reaction Status Date / Time lisinopril Allergy Severe Swelling Verified 03/07/25 22:06 of Lip/Tongue/Throat Vital Signs Vital Signs - 24 hr 03/07/25 14:17 03/07/25 16:43 03/07/25 18:56 Temperature 97.7 F Pulse Rate 102 H 93 91 Respiratory Rate 20 19 20 Blood Pressure 170/113 H 128/81 149/108 H Pulse Oximetry 98 100 98 Oxygen Delivery Room Air 03/07/25 19:01 Temperature Pulse Rate 90 Respiratory Rate 16 Blood Pressure 165/102 H Pulse Oximetry 99 Oxygen Delivery Exam Narrative: GENERAL: non-toxic appearing, in no acute distress. HEAD: Normocephalic, atraumatic. EYES: PERRLA. Conjunctivae clear. NOSE: Normal no drainage. THROAT: Pharynx clear, no exudate. NECK: Trachea midline. No adenopathy, no masses. RESPIRATORY: Airway patent, respirations nonlabored. CTA. CARDIOVASCULAR: Regular rate and rhythm GASTROINTESTINAL: Abdomen is soft and nontender. No organomegaly. Bowel sounds normal in all quadrants. GENITOURINARY: Defer MUSCULOSKELETAL: Moves all extremities. Swelling in erythema to right thumb localized around the IP joint. Area of abscess formation on the dorsal surface of the thumb with purple discoloration. Mild tenderness on palpation. Sensation intact. SKIN: Warm, dry, normal color. With the exception of the right thumb. NEURO: A&O X4. Speech clear PSYCHIATRIC: Normal interaction Results Labs Labs: Short CBC 03/07/25 Range/Units 16:50 WBC 9.9 (4.5-10.0) K/mm3 Hgb 12.9 L (14.0-18.0) g/dL Hct 39.4 L (42.0-52.0) % Plt Count 211 (150-375) k/mm3 BMP 03/07/25 03/07/25 16:50 17:01 Sodium 138 Potassium 3.7 Chloride 107 Carbon Dioxide 25 BUN 18 Creatinine 0.75 0.80 Glucose 93 Calcium 9.1 Liver Function 03/07/25 Range/Units 16:50 Total Bilirubin 0.5 (0.2-1.3) mg/dL AST 35 (17-59) U/L ALT 34 (6-50) U/L Alkaline Phosphatase 100 (38-126) U/L Albumin 4.4 (3.5-5.1) g/dL Quality VTE Prophylaxis VTE prophylaxis: mechanical ordered Assessment and Plan Assessment and plan (1) Osteomyelitis of finger of right hand: Code(s): M86.9 - Osteomyelitis, unspecified Status: Acute Assessment and Plan: Right Hand CT reads significant obstructive process involving distal half of the proximal phalanx of the thumb suggestive of osteomyelitis. -consult to hand/plastic surgery -Zosyn and vancomycin started on 03/07 -blood cultures pending -hydrocodone p.r.n. (2) Abscess of right thumb: Code(s): L02.511 - Cutaneous abscess of right hand Status: Acute Assessment and Plan: Drained in the ED with removal of pus and blood. Soaked with Betadine, peroxide, saline solution on the recommendation from Plastic surgery. -keep wound clean and dry -wound cultures pending (3) Back pain: Code(s): M54.9 - Dorsalgia, unspecified Status: Chronic Assessment and Plan: Chronic back pain with history of (unknown) back surgery -continue gabapentin Prior Studies I have reviewed the following patient records and this information was taken into consideration when formulating the assessment and plan.: previous labs, previous ER visits, previous hospitalizations and previous clinic visits Time Spent with Patient Time with patient: 45 - 74 minutes
[2025-03-07] MEDS: VANCOMYCIN 750 MG/NS 250 ML 750 MG/250 ML BAG 250 MG IVPB (20:39)
[2025-03-07 21:19] VITALS: BP 126/78; PULSE 92; RESP 18; TEMP 36.6; O2SAT 100
--- NOTE | 2025-03-07 21:21 | WPCEDHO ---
ED Hand Off Checklist All vitals saved: Yes IV Site documented: Yes All med administrations documented: Yes Triage Note Triage Note Patient to the ED with PD with 03/07/25 15:07 complaints of swelling and redness to the right thumb. Patient states he cut it with a hatchet 2 months ago. Patient denies pain at this time. this RN agrees with triage assessment pt says he had drainge from the wound earlier today Allergies lisinopril Allergy (Severe, Verified 03/07/25 14:10) Swelling of Lip/Tongue/Throat Administered/Completed Medications Discontinued Medications Hydrogen Peroxide/Benzyl Alcohol (Hydrogen Peroxide 3% Soln(*Sp) 473 Ml Bottle) Confirm Administered Dose 473 ml .ROUTE .STK-MED ONE Stop: 03/07/25 18:12 Last Admin: 03/07/25 19:03 Dose: 473 ml Documented By: TISH Vancomycin HCl (Vancomycin 1,500 Mg/Ns 500 Ml) 1,500 mg in 500 mls @ 250 mls/hr IVPB ONCE ONE Stop: 03/07/25 19:31 Last Infusion: 03/07/25 20:34 Dose: Infused Documented By: Admin: 03/07/25 17:45 Dose: 250 mls/hr Documented By: TISH Vancomycin HCl (Vancomycin 750 Mg/Ns 250 Ml) 750 mg in 250 mls @ 250 mls/hr IVPB ONCE ONE Stop: 03/07/25 20:44 Last Admin: 03/07/25 20:39 Dose: 250 mls/hr Documented By: ANASTASIYA Piperacillin Sod/Tazobactam (Sod 3.375 gm/ Sodium Chloride) 50 mls @ 100 mls/hr IVPB ONCE STA Stop: 03/07/25 18:29 Last Infusion: 03/07/25 20:03 Dose: Infused Documented By: Admin: 03/07/25 19:03 Dose: 100 mls/hr Documented By: TISH Lidocaine HCl (Lidocaine 1% Local Inj 20 Ml Vial) 10 ml INFILTRATE ONCE ONE Stop: 03/07/25 18:01 Last Admin: 03/07/25 19:02 Dose: Not Given Documented By: TISH Non-Admin Reason: MD Administered Lidocaine HCl (Lidocaine 1% Local Inj 10 Ml Vial) Confirm Administered Dose 10 ml .ROUTE .STK-MED ONE Stop: 03/07/25 18:12 Last Admin: 03/07/25 19:03 Dose: Not Given Documented By: TISH Non-Admin Reason: Duplicate Dose Notes 03/07/25 18:57 Nurse Note by Lacie Tompkins per pharmacy, the Zosyn and vancomycin can be hung together Initialized on 03/07/25 18:57 - END OF NOTE 03/07/25 17:43 Nurse Note by Valery Catherine standard regular diet dinner tray ordered Initialized on 03/07/25 17:43 - END OF NOTE Interventions/Assessments IV / Saline Lock, Insert Start: 03/07/25 14:10 Freq: Status: Active Protocol: Document 03/07/25 16:54 TISH (Rec: 03/07/25 16:54 TISH [id number]) IV Assessment Peripheral Access Left Antecubital IV Catheter Access Initiated IV Insertion Date 03/07/25 IV Insertion Time 16:54 Catheter Gauge 18 IV Insertion 1 Attempts Ultrasound Used for No Placement IV Site Assessment WNL IV Care and WNL Maintenance Last Vital Signs Temperature 97.8 F 03/07/25 21:19 Pulse Rate 92 03/07/25 21:19 Respiratory Rate 18 03/07/25 21:19 Pulse Oximetry 100 03/07/25 21:19 Blood Pressure 126/78 03/07/25 21:19 Blood Pressure Mean 94 03/07/25 21:19 Blood Pressure Position Sitting 03/07/25 21:19 Oxygen Delivery Room Air 03/07/25 14:17 Weight 85.4 kg 03/07/25 15:07 Last Result - Abnormals Only RBC 4.49 M/mm3 (4.6-6.20) L 03/07/25 16:50 Hgb 12.9 g/dL (14.0-18.0) L 03/07/25 16:50 Hct 39.4 % (42.0-52.0) L 03/07/25 16:50 Neut % (Auto) 74.7 % (45.5-73.1) H 03/07/25 16:50 Lymph % (Auto) 14.0 % (18.3-44.2) L 03/07/25 16:50 Jerauld % (Auto) 9.5 % (2.6-8.5) H 03/07/25 16:50 Baso % (Auto) 0.1 % (0.2-1.2) L 03/07/25 16:50 Jerauld # (Auto) 0.9 K/mm3 (0.1-0.6) H 03/07/25 16:50 Abs Immat Gran (auto) 0.05 K/mm3 (0.00-0.031) H 03/07/25 16:50 Absolute Neuts (auto) 7.4 K/mm3 (1.3-6.7) H 03/07/25 16:50 C-Reactive Protein 4.2 mg/dL (<1.0) H 03/07/25 16:50 Most Recent Suicide Severity Rating Suicide Severity Rating NO RISK INDICATED 03/07/25 15:07
[2025-03-07 21:42] VITALS: BMI 22.6
--- NOTE | 2025-03-07 21:52 | ADMGEN ---
This patient, Rommel Salcedo, was admitted to 3 [facility] Surg Room 301-01. Patient/family oriented to hospital policies and general routines including ID bracelet, bed and alarms, visiting hours, pain management, procedures, bathroom and other care routines, personal items, smoking policy, room service/diet, and visiting hours. Information on how to activate the Rapid Response Team has been discussed. Patient/Family are encouraged to report perceived risks to care and to ask questions if they do not understand what they are told or what they should do.
[2025-03-07 21:55] VITALS: BP 153/95; PULSE 79; RESP 18; TEMP 36.8; O2SAT 99
[2025-03-07] MEDS: GABAPENTIN 300 MG CAPSULE 600 MG PO (22:28)
[2025-03-08] MEDS: HYDROcodone/acetaminophen (*CRX) 5-325 MG TABLET 1 TAB PO ×3 (03:03→16:59)
[2025-03-08] MEDS: PIPERACILLIN/TAZOBACTAM SOD 3.375 GM in SODIUM CHLORIDE 0.9% IV 50 ML 100 ML IVPB ×3 (03:03→19:00)
[2025-03-08 04:30] VITALS: BP 145/91; PULSE 83; RESP 18; TEMP 36.3; O2SAT 99
[2025-03-08 05:45] LABS: Hematocrit 37.3 % (42.0-52.0); Hemoglobin 11.9 g/dL (14.0-18.0); Immature Granulocyte Percent A 0.3 % (0-0.5); Lymphocytes Absolute Auto 1.59 K/mm3 (0.9-3.2); Mean Corpuscular HGB Conc 31.9 g/dl (32-36); Mean Corpuscular Hemoglobin 28.5 pg (26-34); Mean Corpuscular Volume 89.2 fl (80-100); Nucleated Red Blood Cells Absolute Auto 0.000 K/mm3 (0.0-0.012); Nucleated Red Blood Cells Perc 0.0 % (0.0-0.2); Platelet Count Result 184 k/mm3 (150-375); Red Blood Count 4.18 M/mm3 (4.6-6.20); White Blood Count 6.3 K/mm3 (4.5-10.0)
[2025-03-08] MEDS: VANCOMYCIN 1,500 MG/NS 500 ML 1,500 MG/500 ML BAG 250 MG IVPB ×2 (05:51→16:55)
[2025-03-08 06:24] LABS: Anion Gap 2 mmol/L (4-12); Blood Urea Nitrogen 14 mg/dL (9-20); Calcium 8.6 mg/dL (8.4-10.2); Carbon Dioxide 27 mmol/L (22-30); Chloride 108 mmol/L (98-107); Estimated CRCL calculation 124 ml/min; Estimated Glomerular Filt Rate > 60; Glucose 92 mg/dL (65-110); Potassium 3.5 mmol/L (3.4-5.0); Sodium 137 mmol/L (137-145)
--- NOTE | 2025-03-08 07:27 | P.PNIM_ITS ---
Assessment and Plan Assessment and Plan (1) Osteomyelitis of finger of right hand: Code(s): M86.9 - Osteomyelitis, unspecified Status: Acute Assessment and Plan: - reports injury from hatchet 2 months ago, has been on multiple rounds of PO abx as outpatient -Right Hand CT reads significant obstructive process involving distal half of the proximal phalanx of the thumb suggestive of osteomyelitis. - afebrile, HDS - no leukocytosis. CRP 4.2, ESR 19. -Zosyn and vancomycin started on 03/07 -blood cultures and wound cultures pending -hydrocodone p.r.n. - hand surgery consulted, appreciate recs - ID consulted, appreicate recs (2) Abscess of right thumb: Code(s): L02.511 - Cutaneous abscess of right hand Status: Acute Assessment and Plan: Drained in the ED with removal of pus and blood. Soaked with Betadine, peroxide, saline solution on the recommendation from Plastic surgery. -keep wound clean and dry -wound cultures pending (3) Back pain: Code(s): M54.9 - Dorsalgia, unspecified Status: Chronic Assessment and Plan: Chronic back pain with history of (unknown) back surgery -continue gabapentin Plan Code status: full code DVT prophylaxis: SCDs Dispo: TBD Medical Record Review I have reviewed the following patient records and this information was taken into consideration when formulating the assessment and plan.: previous labs Subjective Date/time seen: 03/08/25 07:27 Interval history: Patient seen and examined at bedside. Complaining of mild pain. Denied fever, chills. Discussed plan of care. Review of Systems Review of Systems: All systems reviewed & are unremarkable except as noted in HPI and below Exam Narrative: General: NAD Eyes: EOMI ENT: neck supple Cardiovascular: Regular rate and rhythm Respiratory: Clear to auscultation, respirations even and unlabored on RA Gastrointestinal: Soft, non tender Genitourinary: no suprapubic tenderness Musculoskeletal: No edema, R thumb with bulky dressing, clean and dry. Skin: warm, dry Neuro: Alert. R hand neurovascularly intact. Psych: Mood appropriate Objective Data Vital Signs Vital Signs: Vital Signs - 24 hr 03/07/25 14:17 03/07/25 16:43 03/07/25 18:56 Temperature 97.7 F Pulse Rate 102 H 93 91 Respiratory Rate 20 19 20 Blood Pressure 170/113 H 128/81 149/108 H Pulse Oximetry 98 100 98 Oxygen Delivery Room Air 03/07/25 19:01 03/07/25 21:19 03/07/25 21:55 Temperature 97.8 F 98.2 F Pulse Rate 90 92 79 Respiratory Rate 16 18 18 Blood Pressure 165/102 H 126/78 153/95 H Pulse Oximetry 99 100 99 Oxygen Delivery 03/07/25 23:01 03/08/25 04:30 Temperature 97.4 F L Pulse Rate 83 Respiratory Rate 18 Blood Pressure 145/91 H Pulse Oximetry 99 Oxygen Delivery Room Air Intake/Output Intake/Output: Intake & Output 03/05/25 03/06/25 03/07/25 03/08/25 23:59 23:59 23:59 23:59 Intake Total 550 150 Balance 550 150 Meds/Results Medications: Active Medications Generic Name Dose Route Start Last Admin Trade Name Freq PRN Reason Stop Dose Admin Acetaminophen 650 mg 03/07/25 18:08 Acetaminophen 325 Mg Tablet PO Q4H PRN Mild Pain (1-3) or Fever Hydrocodone Bitart/Acetaminophen 1 tab 03/07/25 18:08 03/08/25 03:03 Hydrocodone/Acetaminophen (*Crx) 5-325 Mg Tablet PO 1 tab Q4H PRN Administration Pain Rated 4-6 Gabapentin 600 mg 03/07/25 22:20 03/07/25 22:28 Gabapentin 300 Mg Capsule PO 600 mg TID LEXY Administration Vancomycin HCl 1,500 mg in 500 mls @ 250 mls/hr 03/08/25 06:00 03/08/25 05:51 Vancomycin 1,500 Mg/Ns 500 Ml IVPB 250 mls/hr Q12H LEXY Administration Piperacillin Sod/Tazobactam 50 mls @ 100 mls/hr 03/08/25 03:00 03/08/25 03:03 Sod 3.375 gm/ Sodium Chloride IVPB 100 mls/hr Q8H LEXY Administration Meloxicam 15 mg 03/08/25 08:00 Meloxicam 7.5 Mg Tablet PO DAILY@0800 LEXY Ondansetron HCl 4 mg 03/07/25 18:08 Ondansetron Inj 4 Mg/2 Ml Vial IV PUSH Q4H PRN Nausea Radiology Results: ITS Impressions Hand CT 03/07/25 17:24 IMPRESSION: 1. Significant obstructive process involving distal half of the proximal phalanx of the thumb. This is suggestive of osteomyelitis of the proximal phalanx. Less likely differential diagnosis would include neoplasm. 2. Diffuse soft tissue inflammation of the thumb cellulitis. Additional focal low density collection near the interphalangeal joint, 2.5 x 1.5 cm in size suggestive of abscess. Labs Labs: Laboratory Results - last 24 hr 03/07/25 03/07/25 03/07/25 16:49 16:50 17:01 WBC 9.9 RBC 4.49 L Hgb 12.9 L Hct 39.4 L MCV 87.8 MCH 28.7 MCHC 32.7 RDW 14.1 Plt Count 211 MPV 9.7 Immature Gran % (Auto) 0.5 Neut % (Auto) 74.7 H Lymph % (Auto) 14.0 L [place] % (Auto) 9.5 H Eos % (Auto) 1.2 Baso % (Auto) 0.1 L Lymph # (Auto) 1.38 [place] # (Auto) 0.9 H Eos # (Auto) 0.1 Baso # (Auto) 0.0 Abs Immat Gran (auto) 0.05 H Absolute Neuts (auto) 7.4 H Absolute Nucleated RBC 0.000 Nucleated RBC % 0.0 ESR 19 Sodium 138 Potassium 3.7 Chloride 107 Carbon Dioxide 25 Anion Gap 6 BUN 18 Creatinine 0.75 0.80 Estim Creat Clear Calc 136 128 Estimated GFR > 60 > 60 Glucose 93 Lactic Acid 0.8 Calcium 9.1 Total Bilirubin 0.5 AST 35 ALT 34 Alkaline Phosphatase 100 C-Reactive Protein 4.2 H Total Protein 7.7 Albumin 4.4 03/08/25 05:11 WBC 6.3 RBC 4.18 L Hgb 11.9 L Hct 37.3 L MCV 89.2 MCH 28.5 MCHC 31.9 L RDW 14.1 Plt Count 184 MPV 10.0 Immature Gran % (Auto) 0.3 Neut % (Auto) 56.9 Lymph % (Auto) 25.1 [place] % (Auto) 12.5 H Eos % (Auto) 5.0 H Baso % (Auto) 0.2 Lymph # (Auto) 1.59 [place] # (Auto) 0.8 H Eos # (Auto) 0.3 Baso # (Auto) 0.0 Abs Immat Gran (auto) 0.02 Absolute Neuts (auto) 3.6 Absolute Nucleated RBC 0.000 Nucleated RBC % 0.0 ESR Sodium 137 Potassium 3.5 Chloride 108 H Carbon Dioxide 27 Anion Gap 2 L BUN 14 Creatinine 0.82 Estim Creat Clear Calc 124 Estimated GFR > 60 Glucose 92 Lactic Acid Calcium 8.6 Total Bilirubin AST ALT Alkaline Phosphatase C-Reactive Protein Total Protein Albumin
[2025-03-08] MEDS: GABAPENTIN 300 MG CAPSULE 600 MG PO ×3 (08:59→16:55)
[2025-03-08] MEDS: MELOXICAM 7.5 MG TABLET 15 MG PO (08:59)
--- NOTE | 2025-03-08 12:41 | WPDCN ---
Assessment and Plan Assessment and plan (1) Osteomyelitis of finger of right hand: Code(s): M86.9 - Osteomyelitis, unspecified Status: Acute Assessment and Plan: 39yo male with right thumb osteomyelitis and cellulitis. ct images reviewed and agree with report. wbc decreased since admission. discussed impression and Dx and no clear indication for further surgical intervention at this time. discussed plan for continued residential IV abx treatment per ID recs for osteo and local wound care. discussed joint destruction and not possible to tell eventual outcome once infection resolved, but briefly discussed possibilities of arthritis or need for fusion in the future depending on symptoms. Plan: 1) advised on BID warm water mixed with peroxide and betadine soaks. warm moist compresses also helpful 2) elevation 3) ID consult - pt stated he was told he is a mrsa host and was told it can't be eliminated but never had anything done to try to treat this 4) would plan for discharge with ID recs and f/u as outpatient. 5) please reconsult hand service if deteriorates or not improving (2) Cellulitis of right thumb: Code(s): L03.011 - Cellulitis of right finger Status: Acute HPI Data of Consult Date/Time: 03/08/25 12:41 Requesting Physician: Belen Mustafa MD Primary Care Provider: MOBILE THERAPIST PHYSICIAN Consult Narrative Narrative: Rommel Salcedo is a 39 year old male admitted via ED last night for right thumb infection. patient seen and examined at bedside this AM noting slight interval improvement since I&D. patient reports cutting his thumb on an axe/hatchet 2.5-3 months ago without treatment other than local wound care. patient noted pain and swelling right thumb for ~1.5 months without seeking care until he presented to pcp who prescribed abx. patient noted after 10 day course his thumb almost looked back to normal but once he stopped it quickly deteriorated and eventually presented an doe run ER. I&D last pm resulting in release of pressure and purulent fluid. CT scan performed noting IMPRESSION: 1. Significant obstructive process involving distal half of the proximal phalanx of the thumb. This is suggestive of osteomyelitis of the proximal phalanx. Less likely differential diagnosis would include neoplasm. 2. Diffuse soft tissue inflammation of the thumb cellulitis. Additional focal low density collection near the interphalangeal joint, 2.5 x 1.5 cm in size suggestive of abscess. no other concerns Review of Systems Review of Systems: All systems reviewed & are unremarkable except as noted in HPI and below PMFSH Past Medical History Medical History (Updated 03/08/25 @ 02:04 by Tamika Garrett APRN) Back pain Family History Family History (Updated 03/07/25 @ 22:50 by Cristhian Gibbs RN) Father Heart failure Social History Social History Smoking status: Current some day smoker Tobacco type: cigarettes Alcohol intake: former Substance use: current Substance use type: marijuana Last use: Daily Lack of Transportation: YES Lack of Food: Never True Current Housing: I Have Housing Concerned About Future Housing: No Difficulty Paying Gas/Electric Bills: No Difficulty Paying for Meds: No Currently Unemployed: YES Education: High School Diploma/GED Difficulty w/ Childcare or Family Care: No Spiritual care concerns: No Meds Home Medications and Allergies Home Medications ?Medication ?Instructions ?Recorded ?Confirmed ?Type gabapentin 600 mg tablet 600 mg PO TID 03/07/25 03/07/25 History meloxicam 15 mg tablet 15 mg PO DAILY 03/07/25 03/07/25 History Allergies Allergy/AdvReac Type Severity Reaction Status Date / Time lisinopril Allergy Severe Swelling Verified 03/07/25 22:06 of Lip/Tongue/Throat Vital Signs Vital Signs - 24 hr 03/07/25 14:17 03/07/25 16:43 03/07/25 18:56 Temperature 36.5 C Pulse Rate 102 H 93 91 Respiratory Rate 20 19 20 Blood Pressure 170/113 H 128/81 149/108 H Pulse Oximetry 98 100 98 Oxygen Delivery Room Air 03/07/25 19:01 03/07/25 21:19 03/07/25 21:55 Temperature 36.6 C 36.8 C Pulse Rate 90 92 79 Respiratory Rate 16 18 18 Blood Pressure 165/102 H 126/78 153/95 H Pulse Oximetry 99 100 99 Oxygen Delivery 03/07/25 23:01 03/08/25 04:30 Temperature 36.3 C L Pulse Rate 83 Respiratory Rate 18 Blood Pressure 145/91 H Pulse Oximetry 99 Oxygen Delivery Room Air Exam Narrative: Gen: right thumb significant edema ~2x diameter of left thumb. open wound radial side around IPJ with serosanguinous drainage on pressure but no clear appreciable areas of fluctuance. mildly tender mostly at thumb pad ROM: fpl/epl appear intact but notably limited due to edema Vascular: Warm and well perfused Sensation: Intact to light touch per pt Results Labs 03/08/25 05:11 03/08/25 05:11 Labs: Short CBC 03/07/25 03/08/25 Range/Units 16:50 05:11 WBC 9.9 6.3 (4.5-10.0) K/mm3 Hgb 12.9 L 11.9 L (14.0-18.0) g/dL Hct 39.4 L 37.3 L (42.0-52.0) % Plt Count 211 184 (150-375) k/mm3 BMP 03/07/25 03/07/25 03/08/25 16:50 17:01 05:11 Sodium 138 137 Potassium 3.7 3.5 Chloride 107 108 H Carbon Dioxide 25 27 BUN 18 14 Creatinine 0.75 0.80 0.82 Glucose 93 92 Calcium 9.1 8.6 Liver Function 03/07/25 Range/Units 16:50 Total Bilirubin 0.5 (0.2-1.3) mg/dL AST 35 (17-59) U/L ALT 34 (6-50) U/L Alkaline Phosphatase 100 (38-126) U/L Albumin 4.4 (3.5-5.1) g/dL
[2025-03-08 14:00] VITALS: BP 147/88; PULSE 76; RESP 14; TEMP 36.3; O2SAT 98
--- NOTE | 2025-03-08 14:34 | P.CONINF_ITS ---
Assessment and Plan Assessment and plan (1) Osteomyelitis of right hand: Code(s): M86.9 - Osteomyelitis, unspecified Status: Acute Assessment and Plan: ASSESSMENT: 1. osteomyelitis of proximal phalanx of thumb with cellulitis and abscess s/p drainage RECOMMENDATIONS: -place picc -vanco and zosyn ok for now -follow up on abscess and blood cxs and tailor abx further -will need 6 weeks of IV abx and f/u in ID clinic after discharge d/w pharmacy Pt was seen via video telehealth consultation with the assistance of staff. Chart, data and patient info reviewed. Patient was located at [facility] while I was in my [place] office. Pt gave consent. HPI Data of Consult Date/Time: 03/08/25 14:34 Requesting Physician: Belen Mustafa MD Primary Care Provider: COVERING MACHINE OPERATOR PHYSICIAN Consult Narrative Reason for consult: thumb osteomyelitis Narrative: Rommel Salcedo is a 39 year old male, right hand dominant, who cut his right thumb on a hatchet metal blade about 2-3 months ago. Is up to date on tetanus booster. It became infected and was given bactrim which improved the thumb infection, but after stopping abx, worsened. Imaging with osteomyelitis of the proximal phalanx. Also with abscess that was drained in ED. Cultures in process. on vanco/zosyn. [facility] Past Medical History Medical History (Updated 03/08/25 @ 14:38 by Chuyita Schmitz MD) Back pain Family History Family History (Updated 03/07/25 @ 22:50 by Cristhian Gibbs RN) Father Heart failure Social History Social History Smoking status: Current some day smoker Tobacco type: cigarettes Alcohol intake: former Substance use: current Substance use type: marijuana Last use: Daily Lack of Transportation: YES Lack of Food: Never True Current Housing: I Have Housing Concerned About Future Housing: No Difficulty Paying Gas/Electric Bills: No Difficulty Paying for Meds: No Currently Unemployed: YES Education: High School Diploma/GED Difficulty w/ Childcare or Family Care: No Spiritual care concerns: No Meds Home Medications and Allergies Home Medications ?Medication ?Instructions ?Recorded ?Confirmed ?Type gabapentin 600 mg tablet 600 mg PO TID 03/07/2503/07 History meloxicam 15 mg tablet 15 mg PO DAILY 03/07/2502/25 History Allergies Allergy/AdvReac Type Severity Reaction Status Date / Time lisinopril Allergy Severe Swelling Verified 03/07/25 22:06 of Lip/Tongue/Throat Vital Signs Vital Signs - 24 hr 03/07/25 16:43 03/07/25 18:56 03/07/25 19:01 Temperature Pulse Rate 93 91 90 Respiratory Rate 19 20 16 Blood Pressure 128/81 149/108 H 165/102 H Pulse Oximetry 100 98 99 Oxygen Delivery 03/07/25 21:19 03/07/25 21:55 03/07/25 23:01 Temperature 97.8 F 98.2 F Pulse Rate 92 79 Respiratory Rate 18 18 Blood Pressure 126/78 153/95 H Pulse Oximetry 100 99 Oxygen Delivery Room Air 03/08/25 04:30 Temperature 97.4 F L Pulse Rate 83 Respiratory Rate 18 Blood Pressure 145/91 H Pulse Oximetry 99 Oxygen Delivery Exam 2 Narrative: right thumb with incision. +edema and erythema Results Labs 03/08/25 05:11 03/08/25 05:11 Labs: Short CBC 03/07/25 03/08/25 Range/Units 16:50 05:11 WBC 9.9 6.3 (4.5-10.0) K/mm3 Hgb 12.9 L 11.9 L (14.0-18.0) g/dL Hct 39.4 L 37.3 L (42.0-52.0) % Plt Count 211 184 (150-375) k/mm3 BMP 03/07/25 03/07/25 03/08/25 16:50 17:01 05:11 Sodium 138 137 Potassium 3.7 3.5 Chloride 107 108 H Carbon Dioxide 25 27 BUN 18 14 Creatinine 0.75 0.80 0.82 Glucose 93 92 Calcium 9.1 8.6 Liver Function 03/07/25 Range/Units 16:50 Total Bilirubin 0.5 (0.2-1.3) mg/dL AST 35 (17-59) U/L ALT 34 (6-50) U/L Alkaline Phosphatase 100 (38-126) U/L Albumin 4.4 (3.5-5.1) g/dL
[2025-03-08 20:00] VITALS: PULSE 85; RESP 16; O2SAT 100
[2025-03-08 20:59] VITALS: BP 147/86; PULSE 85; RESP 16; TEMP 35.8; O2SAT 100
[2025-03-09] MEDS: PIPERACILLIN/TAZOBACTAM SOD 3.375 GM in SODIUM CHLORIDE 0.9% IV 50 ML 100 ML IVPB ×3 (03:00→19:57)
[2025-03-09 04:46] VITALS: BP 148/83; PULSE 69; RESP 16; TEMP 36.1; O2SAT 99
[2025-03-09] MEDS: HYDROcodone/acetaminophen (*CRX) 5-325 MG TABLET 1 TAB PO ×3 (05:24→19:55)
[2025-03-09 05:41] LABS: Estimated CRCL calculation 118 ml/min; Estimated Glomerular Filt Rate > 60
[2025-03-09] MEDS: VANCOMYCIN 1,750 MG/NS 500 ML 1,750 MG/500 ML BAG 250 MG IVPB ×2 (06:00→17:20)
--- NOTE | 2025-03-09 07:35 | P.PNIM_ITS ---
Assessment and Plan Assessment and Plan (1) Osteomyelitis of finger of right hand: Code(s): M86.9 - Osteomyelitis, unspecified Status: Acute Assessment and Plan: - reports injury from hatchet 2 months ago, has been on multiple rounds of PO abx as outpatient -Right Hand CT reads significant obstructive process involving distal half of the proximal phalanx of the thumb suggestive of osteomyelitis. - afebrile, HDS - no leukocytosis. CRP 4.2, ESR 19. - hand surgery consulted - recommended to continue IV abx. No surgical intervention planned at this time. - ID consulted - recommended to place PICC. Continue Zosyn and vanc. Await cultures. -blood cultures and wound cultures pending -hydrocodone p.r.n. (2) Abscess of right thumb: Code(s): L02.511 - Cutaneous abscess of right hand Status: Acute Assessment and Plan: Drained in the ED with removal of pus and blood. Soaked with Betadine, peroxide, saline solution on the recommendation from Plastic surgery. -keep wound clean and dry - abx as above -wound cultures pending (3) Back pain: Code(s): M54.9 - Dorsalgia, unspecified Status: Chronic Assessment and Plan: Chronic back pain with history of (unknown) back surgery -continue gabapentin Plan Code status: full code DVT prophylaxis: SCDs Dispo: TBD Medical Record Review I have reviewed the following patient records and this information was taken into consideration when formulating the assessment and plan.: previous labs Subjective Date/time seen: 03/09/25 07:35 Interval history: Patient seen and examined at bedside. Complaining of mild pain. Denied fever, chills. Discussed plan of care. Review of Systems Review of Systems: All systems reviewed & are unremarkable except as noted in HPI and below Exam Narrative: General: NAD Eyes: EOMI ENT: neck supple Cardiovascular: Regular rate and rhythm Respiratory: Clear to auscultation, respirations even and unlabored on RA Gastrointestinal: Soft, non tender Genitourinary: no suprapubic tenderness Musculoskeletal: No edema, R thumb with bulky dressing, clean and dry. Skin: warm, dry Neuro: Alert. R hand neurovascularly intact. Psych: Mood appropriate Objective Data Vital Signs Vital Signs: Vital Signs - 24 hr 03/08/25 14:00 03/08/25 20:00 03/08/25 20:59 Temperature 97.3 F L 96.5 F L Pulse Rate 76 85 85 Respiratory Rate 14 16 16 Blood Pressure 147/88 H 147/86 H Pulse Oximetry 98 100 100 Oxygen Delivery Room Air 03/09/25 04:46 Temperature 97.0 F L Pulse Rate 69 Respiratory Rate 16 Blood Pressure 148/83 H Pulse Oximetry 99 Oxygen Delivery Intake/Output Intake/Output: Intake & Output 03/06/25 03/07/25 03/08/25 03/09/25 23:59 23:59 23:59 23:59 Intake Total 550 1660 500 Balance 550 1660 500 Meds/Results Medications: Active Medications Generic Name Dose Route Start Last Admin Trade Name Freq PRN Reason Stop Dose Admin Acetaminophen 650 mg 03/07/25 18:08 Acetaminophen 325 Mg Tablet PO Q4H PRN Mild Pain (1-3) or Fever Hydrocodone Bitart/Acetaminophen 1 tab 03/07/25 18:08 03/09/25 05:24 Hydrocodone/Acetaminophen (*Crx) 5-325 Mg Tablet PO 1 tab Q4H PRN Administration Pain Rated 4-6 Calcium Carbonate 200 mg 03/09/25 05:39 Calcium Carbonate (Tums) 500 Mg (200 Mg Elemental) PO Q6H PRN Indigestion Gabapentin 600 mg 03/07/25 22:20 03/08/25 16:55 Gabapentin 300 Mg Capsule PO 600 mg TID LEXY Administration Piperacillin Sod/Tazobactam 50 mls @ 100 mls/hr 03/08/25 03:00 03/09/25 03:00 Sod 3.375 gm/ Sodium Chloride IVPB 100 mls/hr Q8H LEXY Administration Vancomycin HCl 1,750 mg in 500 mls @ 250 mls/hr 03/09/25 06:00 03/09/25 06:00 Vancomycin 1,750 Mg/Ns 500 Ml IVPB 250 mls/hr Q12H LEXY Administration Meloxicam 15 mg 03/08/25 08:00 03/08/25 08:59 Meloxicam 7.5 Mg Tablet PO 15 mg DAILY@0800 LEXY Administration Ondansetron HCl 4 mg 03/07/25 18:08 Ondansetron Inj 4 Mg/2 Ml Vial IV PUSH Q4H PRN Nausea Radiology Results: ITS Impressions Hand CT 03/07/25 17:24 IMPRESSION: 1. Significant obstructive process involving distal half of the proximal phalanx of the thumb. This is suggestive of osteomyelitis of the proximal phalanx. Less likely differential diagnosis would include neoplasm. 2. Diffuse soft tissue inflammation of the thumb cellulitis. Additional focal low density collection near the interphalangeal joint, 2.5 x 1.5 cm in size suggestive of abscess. Labs Labs: Laboratory Results - last 24 hr 03/09/25 05:18 Creatinine 0.86 Estim Creat Clear Calc 118 Estimated GFR > 60 Vancomycin Trough 8.8 L
[2025-03-09] MEDS: GABAPENTIN 300 MG CAPSULE 600 MG PO ×3 (08:32→16:40)
[2025-03-09] MEDS: MELOXICAM 7.5 MG TABLET 15 MG PO (08:32)
[2025-03-09] MEDS: CALCIUM CARBONATE (TUMS) 500 MG (200 MG ELEMENTAL) PO (08:36)
[2025-03-09 09:44] LABS: Hematocrit 39.4 % (42.0-52.0); Hemoglobin 12.5 g/dL (14.0-18.0); Immature Granulocyte Percent A 0.3 % (0-0.5); Lymphocytes Absolute Auto 1.41 K/mm3 (0.9-3.2); Mean Corpuscular HGB Conc 31.7 g/dl (32-36); Mean Corpuscular Hemoglobin 28.7 pg (26-34); Mean Corpuscular Volume 90.4 fl (80-100); Nucleated Red Blood Cells Absolute Auto 0.000 K/mm3 (0.0-0.012); Nucleated Red Blood Cells Perc 0.0 % (0.0-0.2); Platelet Count Result 207 k/mm3 (150-375); Red Blood Count 4.36 M/mm3 (4.6-6.20); White Blood Count 7.0 K/mm3 (4.5-10.0)
[2025-03-09] MEDS: HYDROGEN PEROXIDE 3% SOLN(*SP) 473 ML BOTTLE IRRIGATION ×2 (10:58→16:39)
[2025-03-09] MEDS: POVIDONE-IODINE 10% SOLUTION 118 ML BOTTLE TOPICAL ×2 (10:59→16:40)
[2025-03-09] MEDS: NACL 0.9% IRRIGATION POUR BOTTL 1,000 ML 1000 ML ×2 (11:00→16:40)
[2025-03-09 14:00] VITALS: BP 153/98; PULSE 72; RESP 20; TEMP 36.1; O2SAT 100
[2025-03-09 20:00] VITALS: BP 154/98; PULSE 70; RESP 20; TEMP 36.2; O2SAT 100
[2025-03-10] MEDS: HYDROcodone/acetaminophen (*CRX) 5-325 MG TABLET 1 TAB PO ×4 (04:29→22:55)
[2025-03-10] MEDS: PIPERACILLIN/TAZOBACTAM SOD 3.375 GM in SODIUM CHLORIDE 0.9% IV 50 ML 100 ML IVPB ×3 (04:30→18:35)
[2025-03-10 04:50] VITALS: BP 156/86; PULSE 68; RESP 20; TEMP 36.2; O2SAT 100
[2025-03-10 05:48] LABS: Hematocrit 38.7 % (42.0-52.0); Hemoglobin 12.2 g/dL (14.0-18.0); Immature Granulocyte Percent A 0.6 % (0-0.5); Lymphocytes Absolute Auto 1.71 K/mm3 (0.9-3.2); Mean Corpuscular HGB Conc 31.5 g/dl (32-36); Mean Corpuscular Hemoglobin 28.5 pg (26-34); Mean Corpuscular Volume 90.4 fl (80-100); Nucleated Red Blood Cells Absolute Auto 0.000 K/mm3 (0.0-0.012); Nucleated Red Blood Cells Perc 0.0 % (0.0-0.2); Platelet Count Result 194 k/mm3 (150-375); Red Blood Count 4.28 M/mm3 (4.6-6.20); White Blood Count 5.3 K/mm3 (4.5-10.0)
[2025-03-10 06:11] LABS: Alanine Aminotransferase 18 U/L (6-50); Albumin Level 3.2 g/dL (3.5-5.1); Alkaline Phosphatase 79 U/L (38-126); Anion Gap 1 mmol/L (4-12); Aspartate Amino Transferase 22 U/L (17-59); Bilirubin,Total 0.3 mg/dL (0.2-1.3); Blood Urea Nitrogen 14 mg/dL (9-20); CRP 1.3 mg/dL (<1.0); Calcium 8.3 mg/dL (8.4-10.2); Carbon Dioxide 28 mmol/L (22-30); Chloride 109 mmol/L (98-107); Estimated CRCL calculation 122 ml/min; Estimated Glomerular Filt Rate > 60; Glucose 102 mg/dL (65-110); Potassium 4.1 mmol/L (3.4-5.0); Sodium 138 mmol/L (137-145); Total Protein 5.8 g/dL (6.3-8.2)
[2025-03-10] MEDS: VANCOMYCIN 1,750 MG/NS 500 ML 1,750 MG/500 ML BAG 250 MG IVPB ×3 (06:42→22:56)
--- NOTE | 2025-03-10 06:53 | P.PNIM_ITS ---
Assessment and Plan Assessment and Plan (1) Osteomyelitis of finger of right hand: Code(s): M86.9 - Osteomyelitis, unspecified Status: Acute Assessment and Plan: - reports injury from hatchet 2 months ago, has been on multiple rounds of PO abx as outpatient -Right Hand CT reads significant obstructive process involving distal half of the proximal phalanx of the thumb suggestive of osteomyelitis. - afebrile, HDS - no leukocytosis. CRP downtrending. - hand surgery consulted - recommended to continue IV abx. No surgical intervention planned at this time. - ID consulted - recommended to place PICC. Continue Zosyn and vanc. Await cultures. - blood cultures NGTD - wound culture with negative gram stain, awaiting final report -hydrocodone p.r.n. (2) Abscess of right thumb: Code(s): L02.511 - Cutaneous abscess of right hand Status: Acute Assessment and Plan: Drained in the ED with removal of pus and blood. Soaked with Betadine, peroxide, saline solution on the recommendation from Plastic surgery. -keep wound clean and dry - abx as above -wound cultures pending (3) Back pain: Code(s): M54.9 - Dorsalgia, unspecified Status: Chronic Assessment and Plan: Chronic back pain with history of (unknown) back surgery -continue gabapentin Plan Code status: full code DVT prophylaxis: SCDs Dispo: TBD Medical Record Review I have reviewed the following patient records and this information was taken into consideration when formulating the assessment and plan.: previous labs Subjective Date/time seen: 03/10/25 06:53 Interval history: Patient seen and examined at bedside. Complaining of mild pain. Denied fever, chills. Discussed plan of care. Review of Systems Review of Systems: All systems reviewed & are unremarkable except as noted in HPI and below Exam Narrative: General: NAD Eyes: EOMI ENT: neck supple Cardiovascular: Regular rate and rhythm Respiratory: Clear to auscultation, respirations even and unlabored on RA Gastrointestinal: Soft, non tender Genitourinary: no suprapubic tenderness Musculoskeletal: No edema, R thumb with swelling with limited ROM, improving. Minimal tenderness. Open area without purulence. Skin: warm, dry Neuro: Alert. R hand neurovascularly intact. Psych: Mood appropriate Objective Data Vital Signs Vital Signs: Vital Signs - 24 hr 03/09/25 14:00 03/09/25 20:00 03/09/25 20:00 Temperature 97 F L 97.2 F L Pulse Rate 72 70 Respiratory Rate 20 20 Blood Pressure 153/98 H 154/98 H Pulse Oximetry 100 100 Oxygen Delivery Room Air 03/10/25 04:50 Temperature 97.2 F L Pulse Rate 68 Respiratory Rate 20 Blood Pressure 156/86 H Pulse Oximetry 100 Oxygen Delivery Intake/Output Intake/Output: Intake & Output 03/07/25 03/08/25 03/09/25 03/10/25 23:59 23:59 23:59 23:59 Intake Total 550 1660 2150 250 Balance 550 1660 2150 250 Meds/Results Medications: Active Medications Generic Name Dose Route Start Last Admin Trade Name Freq PRN Reason Stop Dose Admin Acetaminophen 650 mg 03/07/25 18:08 Acetaminophen 325 Mg Tablet PO Q4H PRN Mild Pain (1-3) or Fever Hydrocodone Bitart/Acetaminophen 1 tab 03/07/25 18:08 03/10/25 04:29 Hydrocodone/Acetaminophen (*Crx) 5-325 Mg Tablet PO 1 tab Q4H PRN Administration Pain Rated 4-6 Calcium Carbonate 200 mg 03/09/25 05:39 03/09/25 08:36 Calcium Carbonate (Tums) 500 Mg (200 Mg Elemental) PO 200 mg Q6H PRN Administration Indigestion Gabapentin 600 mg 03/07/25 22:20 03/09/25 16:40 Gabapentin 300 Mg Capsule PO 600 mg TID LEXY Administration Hydrogen Peroxide/Benzyl Alcohol 0 ml 03/09/25 10:30 03/09/25 16:39 Hydrogen Peroxide 3% Soln(*Sp) 473 Ml Bottle IRRIGATION 473 ml BID LEXY Administration Piperacillin Sod/Tazobactam 50 mls @ 100 mls/hr 03/08/25 03:00 03/10/25 06:49 Sod 3.375 gm/ Sodium Chloride IVPB Infused Q8H LEXY Infusion Vancomycin HCl 1,750 mg in 500 mls @ 250 mls/hr 03/10/25 06:00 03/10/25 06:42 Vancomycin 1,750 Mg/Ns 500 Ml IVPB 250 mls/hr Q8H LEXY Administration Meloxicam 15 mg 03/08/25 08:00 03/09/25 08:32 Meloxicam 7.5 Mg Tablet PO 15 mg DAILY@0800 LEXY Administration Ondansetron HCl 4 mg 03/07/25 18:08 Ondansetron Inj 4 Mg/2 Ml Vial IV PUSH Q4H PRN Nausea Povidone Iodine 0 ml 03/09/25 10:30 03/09/25 16:40 Povidone-Iodine 10% Solution 118 Ml Bottle TOPICAL 120 ml BID LEXY Administration Radiology Results: ITS Impressions Hand CT 03/07/25 17:24 IMPRESSION: 1. Significant obstructive process involving distal half of the proximal phalanx of the thumb. This is suggestive of osteomyelitis of the proximal phalanx. Less likely differential diagnosis would include neoplasm. 2. Diffuse soft tissue inflammation of the thumb cellulitis. Additional focal low density collection near the interphalangeal joint, 2.5 x 1.5 cm in size suggestive of abscess. Labs Labs: Laboratory Results - last 24 hr 03/09/25 03/10/25 05:18 05:34 WBC 7.0 5.3 RBC 4.36 L 4.28 L Hgb 12.5 L 12.2 L Hct 39.4 L 38.7 L MCV 90.4 90.4 MCH 28.7 28.5 MCHC 31.7 L 31.5 L RDW 14.2 14.1 Plt Count 207 194 MPV 10.4 9.4 Immature Gran % (Auto) 0.3 0.6 H Neut % (Auto) 63.9 47.9 Lymph % (Auto) 20.1 32.4 [place] % (Auto) 10.7 H 12.3 H Eos % (Auto) 4.7 H 6.6 H Baso % (Auto) 0.3 0.2 Lymph # (Auto) 1.41 1.71 Bell # (Auto) 0.8 H 0.7 H Eos # (Auto) 0.3 0.4 H Baso # (Auto) 0.0 0.0 Abs Immat Gran (auto) 0.02 0.03 Absolute Neuts (auto) 4.5 2.5 Absolute Nucleated RBC 0.000 0.000 Nucleated RBC % 0.0 0.0 Sodium 138 Potassium 4.1 Chloride 109 H Carbon Dioxide 28 Anion Gap 1 L BUN 14 Creatinine 0.83 Estim Creat Clear Calc 122 Estimated GFR > 60 Glucose 102 Calcium 8.3 L Total Bilirubin 0.3 AST 22 ALT 18 Alkaline Phosphatase 79 C-Reactive Protein 1.3 H Total Protein 5.8 L Albumin 3.2 L Vancomycin Trough 10.5
[2025-03-10] MEDS: MELOXICAM 7.5 MG TABLET 15 MG PO (08:37)
[2025-03-10] MEDS: GABAPENTIN 300 MG CAPSULE 600 MG PO ×3 (08:37→17:36)
[2025-03-10] MEDS: HYDROGEN PEROXIDE 3% SOLN(*SP) 473 ML BOTTLE IRRIGATION ×2 (08:40→16:25)
[2025-03-10] MEDS: POVIDONE-IODINE 10% SOLUTION 118 ML BOTTLE TOPICAL ×2 (08:40→16:25)
[2025-03-10 14:00] VITALS: BP 157/100; PULSE 70; RESP 19; TEMP 36.6; O2SAT 100
[2025-03-10] MEDS: NACL 0.9% IRRIGATION POUR BOTTL 1,000 ML 1000 ML (16:25)
[2025-03-10 20:05] VITALS: BP 148/92; PULSE 92; RESP 18; TEMP 37.1; O2SAT 99
[2025-03-11 04:35] VITALS: BP 145/87; PULSE 74; RESP 20; TEMP 35.8; O2SAT 99
[2025-03-11 06:10] LABS: Hematocrit 37.8 % (42.0-52.0); Hemoglobin 11.9 g/dL (14.0-18.0); Immature Granulocyte Percent A 0.2 % (0-0.5); Lymphocytes Absolute Auto 2.11 K/mm3 (0.9-3.2); Mean Corpuscular HGB Conc 31.5 g/dl (32-36); Mean Corpuscular Hemoglobin 28.7 pg (26-34); Mean Corpuscular Volume 91.1 fl (80-100); Nucleated Red Blood Cells Absolute Auto 0.000 K/mm3 (0.0-0.012); Nucleated Red Blood Cells Perc 0.0 % (0.0-0.2); Platelet Count Result 201 k/mm3 (150-375); Red Blood Count 4.15 M/mm3 (4.6-6.20); White Blood Count 5.7 K/mm3 (4.5-10.0)
[2025-03-11 06:27] LABS: CRP 0.8 mg/dL (<1.0)
--- NOTE | 2025-03-11 07:45 | P.PNIM_ITS ---
Assessment and Plan Assessment and Plan (1) Osteomyelitis of finger of right hand: Code(s): M86.9 - Osteomyelitis, unspecified Status: Acute Assessment and Plan: - reports injury from hatchet 2 months ago, has been on multiple rounds of PO abx as outpatient -Right Hand CT reads significant obstructive process involving distal half of the proximal phalanx of the thumb suggestive of osteomyelitis. - afebrile, HDS - no leukocytosis. CRP downtrending. - wound culture growing staph aureus - blood cultures NGTD - hand surgery consulted - recommended to continue IV abx. No surgical intervention planned at this time. - ID consulted - recommended to place PICC. Continue Zosyn and vanc. Await cultures. - hydrocodone p.r.n. (2) Abscess of right thumb: Code(s): L02.511 - Cutaneous abscess of right hand Status: Acute Assessment and Plan: Drained in the ED with removal of pus and blood. Soaked with Betadine, peroxide, saline solution on the recommendation from Plastic surgery. -keep wound clean and dry - abx as above -wound cultures as above (3) Back pain: Code(s): M54.9 - Dorsalgia, unspecified Status: Chronic Assessment and Plan: Chronic back pain with history of (unknown) back surgery -continue gabapentin Plan Code status: full code DVT prophylaxis: SCDs Dispo: discharge 1-2 days Medical Record Review I have reviewed the following patient records and this information was taken into consideration when formulating the assessment and plan.: previous labs Subjective Date/time seen: 03/11/25 07:45 Interval history: Patient seen and examined at bedside. Pain much better, swelling improved. Patient has been telling nursing he will leave AMA if antibiotics are not arranged by tomorrow. Discussed concern for worsening infection, loss of his finger if infection is not treated appropriately, patient expressed understanding. Review of Systems Review of Systems: All systems reviewed & are unremarkable except as noted in HPI and below Exam Narrative: General: NAD Eyes: EOMI ENT: neck supple Cardiovascular: Regular rate and rhythm Respiratory: Clear to auscultation, respirations even and unlabored on RA Gastrointestinal: Soft, non tender Genitourinary: no suprapubic tenderness Musculoskeletal: No edema, R thumb with swelling with limited ROM, improving. Minimal tenderness. Open area without purulence. Skin: warm, dry Neuro: Alert. R hand neurovascularly intact. Psych: Mood appropriate Objective Data Vital Signs Vital Signs: Vital Signs - 24 hr 03/10/25 14:00 03/10/25 20:00 03/10/25 20:05 Temperature 98 F 98.8 F Pulse Rate 70 92 Respiratory Rate 19 18 Blood Pressure 157/100 H 148/92 H Pulse Oximetry 100 99 Oxygen Delivery Room Air 03/11/25 04:35 Temperature 96.5 F L Pulse Rate 74 Respiratory Rate 20 Blood Pressure 145/87 H Pulse Oximetry 99 Oxygen Delivery Intake/Output Intake/Output: Intake & Output 03/08/25 03/09/25 03/10/25 03/11/25 23:59 23:59 23:59 23:59 Intake Total 1660 2150 1989 1076 Balance 1660 2150 1989 1076 Meds/Results Medications: Active Medications Generic Name Dose Route Start Last Admin Trade Name Freq PRN Reason Stop Dose Admin Acetaminophen 650 mg 03/07/25 18:08 Acetaminophen 325 Mg Tablet PO Q4H PRN Mild Pain (1-3) or Fever Hydrocodone Bitart/Acetaminophen 1 tab 03/07/25 18:08 03/10/25 22:55 Hydrocodone/Acetaminophen (*Crx) 5-325 Mg Tablet PO 1 tab Q4H PRN Administration Pain Rated 4-6 Calcium Carbonate 200 mg 03/09/25 05:39 03/09/25 08:36 Calcium Carbonate (Tums) 500 Mg (200 Mg Elemental) PO 200 mg Q6H PRN Administration Indigestion Gabapentin 600 mg 03/07/25 22:20 03/10/25 17:36 Gabapentin 300 Mg Capsule PO 600 mg TID LEXY Administration Hydrogen Peroxide/Benzyl Alcohol 0 ml 03/09/25 10:30 03/10/25 16:25 Hydrogen Peroxide 3% Soln(*Sp) 473 Ml Bottle IRRIGATION 120 ml BID LEXY Administration Piperacillin Sod/Tazobactam 50 mls @ 100 mls/hr 03/08/25 03:00 03/11/25 05:25 Sod 3.375 gm/ Sodium Chloride IVPB Not Given Q8H LEXY Vancomycin HCl 1,500 mg in 500 mls @ 250 mls/hr 03/11/25 08:00 Vancomycin 1,500 Mg/Ns 500 Ml IVPB Q8H LEXY Meloxicam 15 mg 03/08/25 08:00 03/10/25 08:37 Meloxicam 7.5 Mg Tablet PO 15 mg DAILY@0800 LEXY Administration Ondansetron HCl 4 mg 03/07/25 18:08 Ondansetron Inj 4 Mg/2 Ml Vial IV PUSH Q4H PRN Nausea Povidone Iodine 0 ml 03/09/25 10:30 03/10/25 16:25 Povidone-Iodine 10% Solution 118 Ml Bottle TOPICAL 120 ml BID LEXY Administration Radiology Results: ITS Impressions Hand CT 03/07/25 17:24 IMPRESSION: 1. Significant obstructive process involving distal half of the proximal phalanx of the thumb. This is suggestive of osteomyelitis of the proximal phalanx. Less likely differential diagnosis would include neoplasm. 2. Diffuse soft tissue inflammation of the thumb cellulitis. Additional focal low density collection near the interphalangeal joint, 2.5 x 1.5 cm in size suggestive of abscess. Labs Labs: Laboratory Results - last 24 hr 03/11/25 04:49 WBC 5.7 RBC 4.15 L Hgb 11.9 L Hct 37.8 L MCV 91.1 MCH 28.7 MCHC 31.5 L RDW 14.3 Plt Count 201 MPV 10.0 Immature Gran % (Auto) 0.2 Neut % (Auto) 44.4 L Lymph % (Auto) 36.9 [place] % (Auto) 12.1 H Eos % (Auto) 6.1 H Baso % (Auto) 0.3 Lymph # (Auto) 2.11 [place] # (Auto) 0.7 H Eos # (Auto) 0.4 H Baso # (Auto) 0.0 Abs Immat Gran (auto) 0.01 Absolute Neuts (auto) 2.5 Absolute Nucleated RBC 0.000 Nucleated RBC % 0.0 C-Reactive Protein 0.8 Vancomycin Trough 19.7
[2025-03-11] MEDS: MELOXICAM 7.5 MG TABLET 15 MG PO (08:06)
[2025-03-11] MEDS: VANCOMYCIN 1,500 MG/NS 500 ML 1,500 MG/500 ML BAG 250 MG IVPB (08:06)
[2025-03-11] MEDS: GABAPENTIN 300 MG CAPSULE 600 MG PO ×2 (08:06→12:41)
[2025-03-11] MEDS: HYDROcodone/acetaminophen (*CRX) 5-325 MG TABLET 1 TAB PO (08:09)
[2025-03-11] MEDS: HYDROGEN PEROXIDE 3% SOLN(*SP) 473 ML BOTTLE IRRIGATION (08:27)
[2025-03-11] MEDS: POVIDONE-IODINE 10% SOLUTION 118 ML BOTTLE TOPICAL (08:28)
[2025-03-11] MEDS: PIPERACILLIN/TAZOBACTAM SOD 3.375 GM in SODIUM CHLORIDE 0.9% IV 50 ML 100 ML IVPB (11:05)
--- NOTE | 2025-03-11 19:07 | P.PNINF_ITS ---
Progress Note: A&P Assessment and Plan (1) Osteomyelitis of right hand: Code(s): M86.9 - Osteomyelitis, unspecified Status: Acute Assessment and Plan: ASSESSMENT: 1. osteomyelitis of proximal phalanx of thumb with cellulitis and abscess s/p drainage RECOMMENDATIONS: -thumb with MSSA -pt desires to leave AMA--recommended keflex 500 mg po QID x 6 weeks d/w pharmacy Pt was seen via video telehealth consultation with the assistance of staff. Chart, data and patient info reviewed. Patient was located at [facility] while I was in my [place] office. Pt gave consent. Subjective Date/time seen: 03/11/25 19:07 Interval history: no fever no leukocytosis Exam Narrative: NAD, on room air, non-toxic thumb with decreased erythema; much improved Objective Data Vital Signs Vital Signs: Vital Signs - 24 hr 03/10/25 20:00 03/10/25 20:05 03/11/25 04:35 Temperature 98.8 F 96.5 F L Pulse Rate 92 74 Respiratory Rate 18 20 Blood Pressure 148/92 H 145/87 H Pulse Oximetry 99 99 Oxygen Delivery Room Air 03/11/25 08:06 Temperature Pulse Rate Respiratory Rate Blood Pressure Pulse Oximetry Oxygen Delivery Room Air Intake/Output Intake/Output: Intake & Output 03/08/25 03/09/25 03/10/25 03/11/25 23:59 23:59 23:59 23:59 Intake Total 1660 2150 2040 2326 Balance 1660 2150 2040 2326 Meds/Results Radiology Results: ITS Impressions Hand CT 03/07/25 17:24 IMPRESSION: 1. Significant obstructive process involving distal half of the proximal phalanx of the thumb. This is suggestive of osteomyelitis of the proximal phalanx. Less likely differential diagnosis would include neoplasm. 2. Diffuse soft tissue inflammation of the thumb cellulitis. Additional focal low density collection near the interphalangeal joint, 2.5 x 1.5 cm in size suggestive of abscess. Labs Labs: Laboratory Results - last 24 hr 03/11/25 04:49 WBC 5.7 RBC 4.15 L Hgb 11.9 L Hct 37.8 L MCV 91.1 MCH 28.7 MCHC 31.5 L RDW 14.3 Plt Count 201 MPV 10.0 Immature Gran % (Auto) 0.2 Neut % (Auto) 44.4 L Lymph % (Auto) 36.9 [place] % (Auto) 12.1 H Eos % (Auto) 6.1 H Baso % (Auto) 0.3 Lymph # (Auto) 2.11 [place] # (Auto) 0.7 H Eos # (Auto) 0.4 H Baso # (Auto) 0.0 Abs Immat Gran (auto) 0.01 Absolute Neuts (auto) 2.5 Absolute Nucleated RBC 0.000 Nucleated RBC % 0.0 C-Reactive Protein 0.8 Vancomycin Trough 19.7
== END 2025-03-11 14:15 | disposition left against medical advice (07) | DRG 344 ==
LOC: ANHED 19:28 → ANH3MEDSUR 21:00
PROVIDERS: Nurse Practitioner Adult Health; Admitting Provider Internal Medicine; Emergency Provider Physician Assistant; Visit Provider Physician Assistant
DX: M86.141 Other acute osteomyelitis, right hand (principal); L02.511 Cutaneous abscess of right hand; L03.011 Cellulitis of right finger; M54.9 Dorsalgia, unspecified; F17.210 Nicotine dependence, cigarettes, uncomplicated
CPT/HCPCS: 26010; 36415; 73201; 80048; 80053; 80202; 82565; 83605; 85025; 85652; 86140; 87040; 87070; 87075; 87186; 87205; 96365; 96366; 96367; 99285; A9270; G0378; G0379; J2003; J2543; J3373; Q9967